=== PATIENT | male | born 1960 | race Hispanic/Latino ===

== ENCOUNTER 2017-12-11 15:51 | Emergency (ER) | payer OTHER ==
[2017-12-11] MEDS ORDERED: LIDOCAINE HCL 1% 20 ML VIAL ONE (17:47)
[2017-12-11] MEDS ORDERED: ONDANSETRON ODT 4 MG TAB ONE (17:47)
[2017-12-11] MEDS ORDERED: HYDROMORPHONE 1 MG/1 ML AMP ONE (17:47)
== END 2017-12-11 18:19 | disposition home or self-care (01) ==
LOC: EDH 15:51
DX: L02.31 Cutaneous abscess of buttock (principal); Z90.49 Acquired absence of other specified parts of digestive tract; Z79.899 Other long term (current) drug therapy
CPT/HCPCS: 10060; 96372; 99283; J1170

== ENCOUNTER 2017-12-13 11:35 | Emergency (ER) | payer OTHER | END 2017-12-13 12:30 | disposition home or self-care (01) | LOC: EDH 11:35 | DX: Z48.00 Encounter for change or removal of nonsurgical wound dressing (principal); Z88.6 Allergy status to analgesic agent ==

== ENCOUNTER → 2018-01-25 | Outpatient (CLI) | payer OTHER | END | disposition home or self-care (01) | LOC: OIH 12:51 | PROVIDERS: ATTEND Internal Medicine | DX: Z13.6 Encounter for screening for cardiovascular disorders (principal) | CPT/HCPCS: 75571 ==

== ENCOUNTER → 2022-03-07 | Outpatient (CLI) | payer BC | END | disposition home or self-care (01) | LOC: RAH 09:30 | PROVIDERS: ATTEND Internal Medicine | DX: M47.26 Other spondylosis with radiculopathy, lumbar region (principal); M48.061 Spinal stenosis, lumbar region without neurogenic claudication | CPT/HCPCS: 72148 ==